=== PATIENT | male | born 1965 | race Caucasian/White ===

== ENCOUNTER 2025-02-27 11:06 | Emergency (ER) | payer MEDICAID, SELFPAY ==
[2025-02-27 11:07] VITALS: BMI 31.6
[2025-02-27 11:21] VITALS: BP 145/90; PULSE 78; RESP 16; TEMP 36.5; O2SAT 96
--- NOTE | 2025-02-27 11:52 | XR_ITS ---
Examination: CT abdomen with intravenous contrast. CT pelvis with intravenous contrast. 2-D sagittal and coronal reconstructions. Date and time of exam: 02/27/2025 1:20 PM Indication: Abdominal pain CTDI: vol (mGy) 11.3 DLP: (mGycm) 7.24 Technique: Axial sections of the abdomen and pelvis have been obtained post contrast intravenous injection 3 mm slice thickness. 2-D coronal and sagittal reconstructions were obtained. Low dose protocols were performed. One or more of the following dose reduction techniques were used; automated exposure control, adjustment of the mA and/or KV according to patient size, use of iterative reconstruction technique. Findings: Incidental images of the lung bases demonstrates that they are clear. There are no basilar infiltrates or pleural effusions. The heart size is normal. 3 mm gallstone. Gallbladder otherwise unremarkable. No evidence pericholecystic fluid. Imaging through the upper abdomen demonstrates a normal-appearing liver, spleen, pancreas, and stomach. The adrenal glands are unremarkable. Both kidneys are normal with respect to size shape and position. There is no evidence of a renal mass, nephrolithiasis or hydronephrosis. The abdominal aorta contains diffuse atherosclerotic calcifications but is otherwise unremarkable. There is no periaortic lymphadenopathy. The small bowel loops have a normal appearance. Diffuse sigmoid diverticula without evidence of inflammation. Visualized colon otherwise unremarkable. There is no evidence of an intra-abdominal inflammatory process. The appendix is visualized and is not distended or inflamed. The urinary bladder is not distended and appears entirely normal. The prostate is not enlarged. There is no evidence of an abdominal wall hernia. The osseous structures appear intact. Bilateral right greater than left hydroceles. Impression: Sigmoid diverticulosis without evidence of diverticulitis. 3 mm gallstone. No evidence of gallbladder wall thickening or pericholecystic fluid. Bilateral right greater than left hydroceles
--- NOTE | 2025-02-27 11:52 | XR_ITS ---
Exam testicular ultrasound INDICATION: Pain DATE: 03/30/2025, 12:05 PM FINDINGS: Right testicle: measures 5.9 x 2.9 x 3.4 cm. Normal vascular flow. There is a prominent right hydrocele. There is a intratesticular cyst which measures 2.4 x 0.8 x 2.5 cm. Multiple epididymal head cysts measuring 1 cm. The right epididymis is otherwise unremarkable. Left testicle: Measures 4.9 x 2.8 x 3.6 cm. Normal vascular flow. The epididymis measures 1.2 cm and is unremarkable. Mild left-sided hydrocele. There is a left varicocele IMPRESSION: Bilateral hydrocele, greater on right. 2.4 x 0.8 x 2.5 cm right intratesticular cyst. Left varicocele Multiple right epididymal head cysts measuring up to 1 cm Normal vascular flow to both testicles
--- NOTE | 2025-02-27 11:54 | PD.EDRME ---
Rapid Medical Screening Exam [facility] Arrival date/time: 02/27/25 11:06 Chief Complaint: Abdominal Pain Time Seen by Provider: 02/27/25 11:36 Vital signs: Vital Signs Temperature 97.7 F 02/27/25 11:21 Pulse Rate 78 02/27/25 11:21 Respiratory Rate 16 02/27/25 11:21 Blood Pressure 145/90 H 02/27/25 11:21 Pulse Oximetry (%) 96 02/27/25 11:21 Oxygen Delivery Method Room Air 02/27/25 11:21 E Narrative: 59-year-old male with history of testicular trauma in the past. Now with abdominal pain that radiates to testes x 4 days. No history of kidney stones. No nausea vomiting diarrhea. No chest pain or shortness of breath.
[2025-02-27 12:55] LABS: Collection Type, Urine Clean Catch
[2025-02-27 13:00] LABS: Basophils # (Auto) 0.0 Thou/mm3 (0.0-0.2); Basophils % (Auto) 1 % (0-2.5); Eosinophils # (Auto) 0.2 Thou/mm3 (0.0-0.5); Eosinophils % (Auto) 3 % (0-10); Hematocrit 44.5 % (41.0-53.0); Hemoglobin 15.3 g/dL (13.5-16.0); Immature Granulocytes Auto 0.01 Thou/mm3 (0.00-0.00); Lymphocytes # (Auto) 1.5 Thou/mm3 (1.0-4.8); Lymphocytes % (Auto) 27 % (10-50); Mean Corpuscular HGB Conc 34.4 g/dl (31.0-37.0); Mean Corpuscular Hemoglobin 30.7 pg (25.0-35.0); Mean Corpuscular Volume 89 fL (80-100); Monocytes # (Auto) 0.5 Thou/mm3 (0.0-0.8); Monocytes % (Auto) 9 % (0-12); Neutrophils # (Auto) 3.2 Thou/mm3 (1.8-7.7); Neutrophils % (Auto) 60 % (37-80); Nucleated Red Blood Cell # 0.00 Thou/mm3 (0.00-0.00); Nucleated Red Blood Cell % 0 /100 WBC (0); Platelet Count 244 Thou/mm3 (140-440); RDW Standard Deviation 39.8 fL (35.1-43.9); Red Blood Count 4.99 Miln/mm3 (4.50-5.90); White Blood Count 5.4 Thou/mm3 (3.8-10.6)
[2025-02-27 13:01] LABS: Bilirubin,Urine Negative (Negative); Blood,Urine Negative (Negative); Clarity,Urine Clear (Clear/Hazy); Color,Urine Lt-Yellow (Lt Yel-Yel); Glucose, Urine Negative (Negative); Ketones,Urine Negative (Negative); Leukocyte Esterase,Urine Negative (Negative); Nitrite,Urine Negative (Negative); PH,Urine 6.0 (5.0-7.0); Protein,Urine Negative (Neg - Trace); RBC,Urine 1 /hpf (0-3); Specific Gravity,Urine 1.015 (1.001-1.035); Squamous Epithelial Cell,Urine < 1 /hpf (0-5); Urobilinogen,Urine Negative mg/dL (0.0-1.0); WBC,Urine < 1 /hpf (0-5)
[2025-02-27 13:18] LABS: Alanine Aminotransferase 27 U/L (10-49); Albumin, Serum 4.4 gm/dL (3.5-5.0); Albumin/Globulin Ratio 1.7 (1.2-2.2); Alkaline Phosphatase 77 U/L (46-116); Anion Gap 10 (7-16); Aspartate Amino Transferase 19 U/L (0-34); BUN/Creatinine Ratio 16 Ratio (12-20); Bilirubin,Total 0.7 mg/dL (0.3-1.2); Blood Urea Nitrogen 13 mg/dL (9-23); Calcium 10.2 mg/dL (8.3-10.6); Calcium (Corrected) 10.2 mg/dL (8.5-10.1); Carbon Dioxide 26.5 mMol/L (20.0-31.0); Chloride 103 mMol/L (98-107); Creatinine (Component) 0.8 mg/dL (0.6-1.3); Estimated Creatinine Clearance 128.7 mL/min (>60); Globulin 2.6 gm/dL (2.3-3.5); Glucose 96 mg/dL (74-106); Lipase 30 U/L (12-53); Osmolality,Calculated 277 (275-295); Potassium 4.1 mMol/L (3.4-5.1); Sodium 139 mMol/L (136-145); Total Protein 7.0 gm/dL (5.7-8.2); eGFR > 60 See Note
--- NOTE | 2025-02-27 15:02 | PD.EDMALE ---
ED Male Genitalurinary RME/HPI General Chief complaint: Abdominal Pain Stated complaint: LOWER ABD PAIN Time Seen by Provider: 02/27/25 11:36 Arrival date/time: 02/27/25 11:06 RME / HPI RME / HPI Narrative: 59-year-old male with history of testicular trauma in the past. Now with abdominal pain that radiates to testes x 4 days. Patient also complained of testicular swelling for several years more than 40 years now. Getting worse. Denies any dysuria. Denies any fever. No history of kidney stones. No nausea vomiting diarrhea. No chest pain or shortness of breath. Related Data Home Medications ?Medication ?Instructions ?Recorded ?Confirmed amlodipine 10 mg tablet 10 mg PO QDAY 03/29/19 08/20/19 Previous Rx's ?Medication ?Instructions ?Recorded atorvastatin 20 mg tablet 20 mg PO HS #30 tabs 08/21/19 levofloxacin 500 mg tablet 500 mg PO QDAY #14 tabs 08/21/19 (Levaquin) metronidazole 500 mg tablet 500 mg PO Q8H #30 tabs 08/21/19 famotidine 10 mg tablet 10 mg PO QDAY #20 tabs 03/30/24 Allergies Allergy/AdvReac Type Severity Reaction Status Date / Time No Known Allergies Allergy Verified 02/27/25 11:09 Review of Systems Review of Systems Narrative Review of Systems: Review of system reviewed and within normal limits except mentioned in HPI ED Exam Narrative Physical exam: VITAL SIGNS: Reviewed. GENERAL APPEARANCE: Alert and interactive, follows commands, no acute distress, HEAD AND FACE: Non-traumatic. ENT: PERRL, pink conjunctivitis, eyelid no trauma, Mucous membrane moist. NECK: Supple, nontender, no nuchal rigidity. CHEST: No tenderness, no crepitus, no paradoxical movement, no retractions. LUNGS: Clear, well ventilated, symmetric, no rales, no wheezing, no ronchi, no stridor, good breath sounds bilaterally. HEART: Regular rate, regular rhythm, no murmur, no gallops. ABDOMEN: Soft, positive bowel sounds, nondistended, no guarding, nontender, no rebound, no masses, RECTAL: Deferred. GENITAL: Testicular swelling more on the left, nontender NEUROLOGICAL: Gross motor function intact sensory function intact, Appropriate for age. MUSCULOSKELETAL: low back nontender, full range of motion. EXTREMITIES: Nontender, full range of motion. SKIN: Color pink, dry, no rash, no lacerations, no abrasions, no contusions. LYMPHATICS: Deferred. Course Quality Measures none Orders Category Date Time Status CT Screening NOW Care 02/27/25 11:53 Active IV [Insert IV] NOW Care 02/27/25 11:[address] abdomen pelvis w con Stat Exams 02/27/25 11:52 Completed US testicular Stat Exams 02/27/25 11:52 Completed CBC Stat Lab 02/27/25 12:30 Completed CMP [Comprehensive Metabolic Panel] Stat Lab 02/27/25 12:30 Completed Lipase Stat Lab 02/27/25 12:30 Completed UA [Urinalysis] Stat Lab 02/27/25 12:25 Completed Vital Signs Vital signs: Vital Signs Temperature 97.7 F 02/27/25 11:21 Pulse Rate 78 02/27/25 11:21 Respiratory Rate 16 02/27/25 11:21 Blood Pressure 145/90 H 02/27/25 11:21 Pulse Oximetry (%) 96 02/27/25 11:21 Oxygen Delivery Method Room Air 02/27/25 11:21 Urogenital - Male MDM Narrative MDM Narrative:: 59-year-old male with history of testicular trauma in the past. Now with abdominal pain that radiates to testes x 4 days. Patient also complained of testicular swelling for several years more than 40 years now. Getting worse. Denies any dysuria. Denies any fever. No history of kidney stones. No nausea vomiting diarrhea. No chest pain or shortness of breath. Laboratory workup including urinalysis all came back unremarkable. CT scan of the abdomen and pelvis showed Incidental images of the lung bases demonstrates that they are clear. There are no basilar infiltrates or pleural effusions. The heart size is normal. 3 mm gallstone. Gallbladder otherwise unremarkable. No evidence pericholecystic fluid. Imaging through the upper abdomen demonstrates a normal-appearing liver, spleen, pancreas, and stomach. The adrenal glands are unremarkable. Both kidneys are normal with respect to size shape and position. There is no evidence of a renal mass, nephrolithiasis or hydronephrosis. The abdominal aorta contains diffuse atherosclerotic calcifications but is otherwise unremarkable. There is no periaortic lymphadenopathy. The small bowel loops have a normal appearance. Diffuse sigmoid diverticula without evidence of inflammation. Visualized colon otherwise unremarkable. There is no evidence of an intra-abdominal inflammatory process. The appendix is visualized and is not distended or inflamed. The urinary bladder is not distended and appears entirely normal. The prostate is not enlarged. There is no evidence of an abdominal wall hernia. The osseous structures appear intact. Bilateral right greater than left hydroceles. Impression: Sigmoid diverticulosis without evidence of diverticulitis. 3 mm gallstone. No evidence of gallbladder wall thickening or pericholecystic fluid. Bilateral right greater than left hydroceles Testicular ultrasound showed Bilateral hydrocele, greater on right. 2.4 x 0.8 x 2.5 cm right intratesticular cyst. Left varicocele Multiple right epididymal head cysts measuring up to 1 cm Normal vascular flow to both testicles Results discussed with the patient. Patient was given a copy of her ultrasound and CT scan of the abdomen and pelvis and advised him to follow-up closely with general surgeon and urologist. Patient and family agrees with the plan. Patient data External records reviewed:: None Clinical information provided by:: patient Social determinants that could affect healthcare access:: none (None) Patient has the following chronic illnesses:: None How is presenting disease/condition affected by chronic disease/condition?: no chronic disease Evaluation data The following diagnostics were reviewed and interpreted by me:: lab results and radiology exam(s) Lab and/or radiology exams considered but not ordered:: None Interpretation Summary: See results MDM Medications / Prescriptions Medications or Prescriptions considered but not ordered:: None Medication administrations:: None Consultations Consultation(s) initiated? (list below): No Diagnosis Urogenital Male Differential Diagnosis: urinary tract infection, urethritis and epididymitis Most likely diagnosis given after review of the tests above:: Testicular cyst, hydrocele, gallstone Admission Indicated Admission indicated?: not indicated Admission Request Was there a request for admission?: No Disposition Plan Disposition Plan: Discharge Discharge Attestation Discharge Attestation: The patient and all family members were given an opportunity to ask questions and understood the discharge instructions. Discharge instructions specifically effects, indications for sooner follow up or return to the emergency department, and the expected course of current diagnosis. Patient condition: Stable Discharge Plan Plan Patient Disposition: HOME (Self Care) Discharge Disposition comment: Stable Prescriptions/Referrals Prescriptions/Med Rec: No Action amlodipine 10 mg Tablet 10 mg PO QDAY atorvastatin 20 mg Tablet 20 mg PO HS Qty: 30 0RF levofloxacin [Levaquin] 500 mg tablet 500 mg PO QDAY Qty: 14 0RF metronidazole 500 mg tablet 500 mg PO Q8H Qty: 30 0RF famotidine 10 mg tablet 10 mg PO QDAY Qty: 20 0RF Referrals: Markus Deras MD [Primary Care Provider] - In 1 week Problem List Clinical Impression: Gallstone, Hydrocele, Cyst of testis Patient/Caregiver Discharge Instructions Discharge Activity: activity as tolerated Education Materials: What Are Gallstones, ED Hydrocele, Type Not Specified Additional Instructions: Thank you for the opportunity for serving you today. You are stable for discharged . You are advised to: Follow-up with your PCP in 1 to 2 days and ask for referral to general surgeon regarding your gallstone, and urologist regarding your hydrocele and testicular cyst Return to ED for worsening of symptoms. You may take Tylenol Motrin as needed for pain you can also wear support briefs as needed especially with lifting Print Language: Amharic Stand Alone Forms: Amina Award Info., Patient Portal Info Letter
[2025-02-27 15:14] VITALS: BP 140/72; PULSE 78; RESP 18; TEMP 37; O2SAT 100
== END 2025-02-27 15:15 | disposition home or self-care (01) ==
PROVIDERS: Physician Assistant; Emergency Provider Family Medicine; PCP Family Medicine
DX: K80.20 Calculus of gallbladder without cholecystitis without obstruction (principal); N43.3 Hydrocele, unspecified; N44.2 Benign cyst of testis; N50.3 Cyst of epididymis; K57.30 Diverticulosis of large intestine without perforation or abscess without bleeding
CPT/HCPCS: 36415; 74177; 76870; 80053; 81001; 83690; 85025; 99284; A4649; Q9967